=== PATIENT | male | born 1980 | race Two or more races ===

== ENCOUNTER 2017-05-02 11:11 | Emergency (ER) | payer OTHER ==
[2017-05-02] MEDS ORDERED: Acetaminophen TAB* 325 MG PO ONE (13:26)
--- NOTE | 2017-05-02 14:00 | ED ---
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 He endorses sick contacts at school. Specifically the influenza virus. He notes to having similar symptoms 2 years ago, but was negative for flu. He takes no medications and denies any health concerns. Rash to the bilateral lower extremities is without pain or pruritus. He has not taken anything for fever, and has no Tylenol at home. Temperature was noted to be highest at home today at 102.1. - History of Current Complaint Chief Complaint: EDFluSymptoms Time Seen by Provider: 05/02/17 11:21 Hx Obtained From: Patient Onset/Duration: Gradual Onset Severity: Moderate Associated Signs & Symptoms: Fever, T Max - 102.1, F/C Related Hx: Possible Flu/Infectious Exposure - Risk Factors Influenza Risk Factors: Negative - Allergy/Home Medications Allergies/Adverse Reactions: Allergies Allergy/AdvReac Type Severity Reaction Status Date / Time No Known Allergies Allergy Verified 07/24/14 20:58 PMH/Surg Hx/FS Hx/Imm Hx Previously Healthy: Yes Endocrine/Hematology History: Denies: Hx Diabetes, Hx Thyroid Disease Cardiovascular History: Denies: Hx Hypertension Respiratory History: Denies: Hx Asthma, Hx Chronic Obstructive Pulmonary Disease (COPD) GI History: Denies: Hx Ulcer Infectious Disease History: No Infectious Disease History: Denies: Hx Hepatitis, Hx Human Immunodeficiency Virus (HIV), Traveled Outside the [place] in Last 30 Days - Social History Occupation: Student Lives: With Family Alcohol Use: None Hx Substance Use: No Substance Use Type: Reports: None Hx Tobacco Use: No Smoking Status (MU): Never Smoked Tobacco Review of Systems Positive: Fever, Chills, Fatigue, Skin Diaphoresis Eyes: Negative ENT: Negative Respiratory: Negative Positive: Nausea Genitourinary: Negative Positive: no symptoms reported, see HPI Positive: Myalgia Skin: Negative Neurological: Negative All Other Systems Reviewed And Are Negative: Yes Physical Exam Triage Information Reviewed: Yes Vital Signs On Initial Exam: Initial Vitals Temp Pulse Resp BP Pulse Ox 99.3 F 88 22 85/14 97 05/02/17 11:20 05/02/17 11:20 05/02/17 11:20 05/02/17 11:20 05/02/17 11:20 Appearance: Positive: Well-Nourished, Ill-Appearing Skin: Positive: Warm, Skin Color Reflects Adequate Perfusion, Diaphoretic, Other - Slight erythema to the bilateral shins without pain or pruritus. No warmth Head/Face: Positive: Normal Head/Face Inspection Eyes: Positive: EOMI, REEMA, Conjunctiva Clear Respiratory/Lung Sounds: Positive: Clear to Auscultation, Breath Sounds Present Cardiovascular: Positive: RRR, Pulses are Symmetrical in both Upper and Lower Extremities Musculoskeletal: Positive: Strength/ROM Intact Neurological: Positive: Sensory/Motor Intact, Alert, Oriented to Person Place, Time Psychiatric: Positive: Normal, Affect/Mood Appropriate AVPU Assessment: Alert Diagnostics - Vital Signs Vital Signs Temp Pulse Resp BP Pulse Ox 05/02/17 11:20 99.3 F 88 22 85/14 97 - Laboratory Lab Results: Lab Results 05/02/17 Range/Units 12:28 Influenza A (Rapid) Positive H (Negative) Influenza B (Rapid) Negative (Negative) Lab Statement: Any lab studies that have been ordered have been reviewed, and results considered in the medical decision making process. Flu Symptom Course/Dx - Course Course Of Treatment: During the course of treatment, the patient is evaluated for influenza-like illness. Influenza swab obtained and influenza A+. He is given 1 L of fluids. Discussed course of treatment and plan with patient who is okay for discharge. He is advised to rest, drink plenty of fluids and Tamiflu 75 mg twice daily 5 days is prescribed. He is also prescribed Zofran for any accompanying nausea. Rash appears to be only slight erythema without warmth or tenderness, possible reaction from having influenza virus and no concern for cellulitis or other pathology at this point. He is discharged home with good return precautions and voices no concerns at this time. - Diagnoses Differential Diagnosis/HQI/PQRI: Positive: Influenza Provider Diagnoses: Influenza A Discharge - Discharge Plan Condition: Stable Disposition: HOME Prescriptions: Ondansetron ODT TAB* [Zofran 4 MG Odt TAB*] 4 mg PO Q6H PRN #12 tab.odt MDD 4 PRN Reason: Nausea Oseltamivir CAP* [Tamiflu CAP*] 75 mg PO BID #10 cap Patient Education Materials: Influenza (ED) Forms: *School Release Referrals: [facility] [Primary Care Provider] - Additional Instructions: Tylenol 650 mg 3 times daily for body aches Tamiflu 75 mg twice daily for influenza, start this medication this afternoon with the second dose this evening Zofran as needed for any nausea and vomiting Eat small meals at a time, including applesauce, bananas, rice, toast, chicken noodle soup Make sure you're drinking enough fluids If you feel you cannot get enough fluids, drinking Gatorade He may return to class on Saturday unless he begins to feel worse, then return to the ED
[2017-05-02 14:17] VITALS: BP 103/56
== END 2017-05-02 14:15 | disposition home or self-care (01) ==
LOC: ED 11:11
DX: J11.1 Influenza due to unidentified influenza virus with other respiratory manifestations (principal)
CPT/HCPCS: 87502; 99282; A9270-GY